=== PATIENT | male | born 1945 | race Caucasian/White ===

== ENCOUNTER 2019-12-21 13:40 | Inpatient (IN) | payer MEDICARE, MEDICAID ==
[~2019-12-21] VITALS: Ht 177.8 cm; Wt 136.0 kg
[2019-12-21] VITALS (7 sets, daily range): BP systolic 93–124; BP diastolic 62–87
[~2019-12-21 13:40] MED LIST: NO HOME MEDS
[2019-12-21 15:19] LABS: BASOPHILS % (AUTO) 0.4 % (0-1); EOSINOPHILS % (AUTO) 0.2 % (0-6); HEMATOCRIT 35.4 % (42.0-52.0); HEMOGLOBIN 12.5 g/dl (14.0-17.9); LYMPHOCYTES # (AUTO) 0.6 X10'3 (1.1-4.8); LYMPHOCYTES % (AUTO) 6.1 % (21-51); MEAN CORPUSCULAR HEMOGLOBIN 31.7 PG (27.0-31.0); MEAN CORPUSCULAR HGB CONC 35.3 g/dL (33.0-36.5); MEAN CORPUSCULAR VOLUME 89.8 FL (78-98); MEAN PLATELET VOLUME 7.7 FL (7.4-10.4); MONOCYTES # (AUTO) 0.7 X10'3 (0-0.9); MONOCYTES % (AUTO) 7.1 % (2-12); NEUTROPHILS % (AUTO) 86.2 % (42-75); PLATELET COUNT 288 X10'3 (140-440); RED BLOOD COUNT 3.94 X10'6 (4.70-6.10); RED CELL DISTRIBUTION WIDTH 13.1 % (11.5-14.5); WHITE BLOOD COUNT 10.4 X10'3 (4.5-11.0)
[2019-12-21 15:29] LABS: CLARITY,URINE SLIGHTLY CLOUDY (Clear); COLOR,URINE YELLOW (Yellow); GLUCOSE, URINE NEGATIVE (Neg); KETONES,URINE NEGATIVE (Neg); LEUKOCYTE ESTERASE ,URINE TRACE (Neg); NITRITES, URINE NEGATIVE (Neg); OCCULT BLOOD,URINE NEGATIVE (Neg); PROTEIN,URINE NEGATIVE (Neg); UROBILINOGEN,URINE 0.2 E.U/dL (0.2-1.0)
[2019-12-21 15:39] LABS: UA COLLECTION TYPE URINAL
[2019-12-21 15:40] LABS: ALANINE AMINOTRANSFERASE 21 U/L (12-78); ALBUMIN 3.5 G/DL (3.4-5.0); ALBUMIN/GLOBULIN RATIO 0.8 (1.1-1.5); ALKALINE PHOSPHATASE 64 IU/L (46-116); ANION GAP 2 (8-16); ASPARTATE AMINO TRANSFERASE 16 U/L (10-37); BILIRUBIN,TOTAL 0.7 MG/DL (0.1-1.0); BLOOD UREA NITROGEN 21 MG/DL (7-18); BUN/CREATININE RATIO 15.6 (5.4-32.0); CHLORIDE 84 MMOL/L (99-107); CREATININE 1.35 MG/DL (0.60-1.10); GLUCOSE 225 MG/DL (70-104); POTASSIUM 3.8 MMOL/L (3.5-5.1); SODIUM 121 MMOL/L (135-145); TOTAL CARBON DIOXIDE 35.5 MMOL/L (24-32); TOTAL PROTEIN 7.7 G/DL (6.4-8.2); eGFR 51 ML/MIN
[2019-12-21 15:43] LABS: MAGNESIUM 2.3 MG/DL (1.5-2.4)
[2019-12-21 15:45] LABS: BACTERIA,URINE FEW /HPF (Neg); MUCUS STRANDS FEW /LPF (Neg); SQUAMOUS EPITHELIAL CELL,UR FEW /LPF (FEW)
[2019-12-21 15:47] LABS: STARCH,URINE MODERATE /HPF (NEGATIVE)
[2019-12-21 15:48] LABS: RBC,URINE 0-2 /HPF (0-2); WBC,URINE 0-4 /HPF (0-4)
[2019-12-21] MEDS ORDERED: potassium CL 10mEq/100ml bag 100 ML IV PRN (16:35)
[2019-12-21] MEDS ORDERED: magnesium Cl slow-release 64mg tablet PO PRN (16:35)
[2019-12-21] MEDS ORDERED: magnesium 4gm in 100ml NS 100 ML IV PRN (16:35)
[2019-12-21] MEDS ORDERED: ondansetron/PF 4mg/2ml inj IV PRN (16:35)
[2019-12-21] MEDS ORDERED: magnesium 2GM in 50ml NS 50 ML IV PRN (16:35)
[2019-12-21] MEDS ORDERED: acetaminophen 325mg tablet PO PRN (16:35)
[2019-12-21] MEDS ORDERED: potassium Cl 20 mEq SR tablet PO PRN ×2 (16:35)
[2019-12-21] MEDS ORDERED: normal saline 1000ml 1,000 ML IV SCH (16:35)
--- NOTE | 2019-12-21 18:00 | NUR ---
Problems reprioritized. Patient report given, questions answered & plan of care reviewed with Lisa PERLA.
--- NOTE | 2019-12-21 18:00 | NUR ---
Report received from FRONT OF HOUSE MANAGER. Pt brought to ACCE on a bed and used slide to to get in ACCE bed. He was brought to room 313. VS where stable. Pt oriented to room, call light, Meals, Bed controls he stated understanding but he is A&O x 1-2 with mild confusion. Bed alarm on. Pt tolrated move well. Food ordered for him from dietary.
--- NOTE | 2019-12-21 18:41 | NUR ---
Patient in room MED 313. I have received report from Kayley PERLA and had the opportunity to ask questions and assume patient care.
[2019-12-21] MEDS: K and/or MAG REPLACEMENT MC SCH (20:00)
[2019-12-21] MEDS ORDERED: methylPREDNISolone sod succ/PF 40mg inj. IV ONE (22:15)
--- NOTE | 2019-12-21 22:54 | NUR ---
Stat Echo ordered per Nora. Please call Joanna KNOTT [phone]
[2019-12-21 22:56] LABS: ABG BASE EXCESS 8.2 mmol/L (-2.0-2.0); ABG HCO3 34.1 mmol/L (22.0-26.0); ABG OXYGEN SATURATION 96.7 % (94-97); ABG PCO2 (T) 52.2 mmHg (35.0-48.0); ABG PO2 (T) 88.8 mmHg (75.0-100.0); ALLEN'S TEST POSITIVE; FCOHb 0.6 % (0.0-3.9); FLOW 2 L/min; FMetHb 0.1 % (0.0-1.5); PATIENT TEMPERATURE 36.4; TOTAL HEMOGLOBIN 11.9 G/dl (14.0-18.0)
--- NOTE | 2019-12-21 22:57 | NUR ---
microbiological lab technician called, will be arriving shortly for stat echo. Michael PERLA
[2019-12-21] MEDS: ipratropium/albuterol 3ml nebule NEB SCH (23:04)
[2019-12-21 23:30] LABS: ALBUMIN 3.1 G/DL (3.4-5.0); ANION GAP 0 (8-16); BLOOD UREA NITROGEN 20 MG/DL (7-18); BUN/CREATININE RATIO 16.9 (5.4-32.0); CALCIUM 8.5 MG/DL (8.5-10.1); CHLORIDE 87 MMOL/L (99-107); CREATININE 1.18 MG/DL (0.60-1.10); GLUCOSE 168 MG/DL (70-104); POTASSIUM 3.3 MMOL/L (3.5-5.1); SODIUM 122 MMOL/L (135-145); TOTAL CARBON DIOXIDE 35.2 MMOL/L (24-32); eGFR 60 ML/MIN
[2019-12-22] VITALS (9 sets, daily range): BP systolic 109–163; BP diastolic 48–115
--- NOTE | 2019-12-22 00:01 | NUR ---
PAGED DR. RODRIGUEZ PAGER ID: [phone] MESSAGE: HEDY VILA [phone] (MIRNA) NA - 122, K 3.3 BIPAP ON, U/A RANDOM NA - 21 . ECHO RESULTS SHOULD BE AVAILABLE SHORTLY
[2019-12-22] MEDS: potassium CL 10mEq/100ml bag 100 ML IV PRN ×4 (00:25→04:16)
[2019-12-22] MEDS ORDERED: nitroGLYCERIN 0.4mg SUBLingual tab SL PRN (02:05)
[2019-12-22 02:45] LABS: BASOPHILS % (AUTO) 0.4 % (0-1); EOSINOPHILS # (AUTO) 0.2 X10'3 (0-0.9); EOSINOPHILS % (AUTO) 1.6 % (0-6); HEMATOCRIT 33.1 % (42.0-52.0); HEMOGLOBIN 11.5 g/dl (14.0-17.9); LYMPHOCYTES # (AUTO) 0.9 X10'3 (1.1-4.8); LYMPHOCYTES % (AUTO) 9.3 % (21-51); MEAN CORPUSCULAR HEMOGLOBIN 31.2 PG (27.0-31.0); MEAN CORPUSCULAR HGB CONC 34.9 g/dL (33.0-36.5); MEAN CORPUSCULAR VOLUME 89.4 FL (78-98); MEAN PLATELET VOLUME 8.1 FL (7.4-10.4); MONOCYTES % (AUTO) 10.2 % (2-12); NEUTROPHILS # (AUTO) 7.9 X10'3 (1.8-7.7); NEUTROPHILS % (AUTO) 78.5 % (42-75); PLATELET COUNT 273 X10'3 (140-440); RED CELL DISTRIBUTION WIDTH 12.9 % (11.5-14.5); WHITE BLOOD COUNT 10.1 X10'3 (4.5-11.0)
[2019-12-22] MEDS: ipratropium/albuterol 3ml nebule NEB SCH ×6 (03:36→22:59)
[2019-12-22 05:38] LABS: ALBUMIN 3.1 G/DL (3.4-5.0); ANION GAP 2 (8-16); BLOOD UREA NITROGEN 20 MG/DL (7-18); BUN/CREATININE RATIO 17.1 (5.4-32.0); CALCIUM 8.4 MG/DL (8.5-10.1); CHLORIDE 86 MMOL/L (99-107); CREATININE 1.17 MG/DL (0.60-1.10); GLUCOSE 189 MG/DL (70-104); MAGNESIUM 2.3 MG/DL (1.5-2.4); POTASSIUM 4.1 MMOL/L (3.5-5.1); SODIUM 121 MMOL/L (135-145); eGFR 61 ML/MIN
[2019-12-22] MEDS ORDERED: dextrose 50%-water 50ml dispensing syringe IV PRN ×2 (08:45)
[2019-12-22] MEDS ORDERED: dextrose ORAL solution 15 GM/59 ML bottle PO PRN ×2 (08:45)
[2019-12-22] MEDS ORDERED: MESSAGE TO PHARMACY PO ONE (08:45)
[2019-12-22] MEDS ORDERED: glucagon, human recombinant 1mg kit SUBCUT PRN (08:45)
[2019-12-22] MEDS: normal saline 1000ml 1,000 ML IV SCH ×2 (09:05→20:34)
[2019-12-22 09:29] LABS: HEMOGLOBIN A1C 8.3 % (4.5-6.2)
[2019-12-22] MEDS ORDERED: BUSP10TA11 PO (10:01)
[2019-12-22] MEDS ORDERED: AMA1T PO (11:47)
[2019-12-22] MEDS ORDERED: HCTZ25T PO (11:47)
[2019-12-22] MEDS ORDERED: LIDO700A32 TOP (11:47)
[2019-12-22] MEDS ORDERED: MELA1TAB28 PO (11:47)
[2019-12-22] MEDS ORDERED: RIVA20TA PO (11:47)
[2019-12-22] MEDS ORDERED: CARV-50 PO (11:47)
[2019-12-22] MEDS ORDERED: DULO-31 PO (11:47)
[2019-12-22] MEDS ORDERED: CALC500T11 PO (11:47)
[2019-12-22] MEDS ORDERED: FINA5TAB3 PO (11:47)
[2019-12-22] MEDS ORDERED: FURO40TA4 PO (11:47)
[2019-12-22] MEDS ORDERED: TRAZ-256 PO (11:47)
[2019-12-22] MEDS ORDERED: FLO0.4C PO (11:47)
[2019-12-22] MEDS ORDERED: UMEC1DIS INH (11:47)
[2019-12-22] MEDS ORDERED: LISI40TA4 PO (11:47)
[2019-12-22] MEDS ORDERED: CYAN250014 PO (11:47)
[2019-12-22] MEDS ORDERED: NITR0.4T48 SL (11:51)
[2019-12-22] MEDS ORDERED: DOCU-148 PO (11:51)
[2019-12-22] MEDS: nystatin 15 GM powder TP SCH ×2 (11:56→21:00)
[2019-12-22] MEDS ORDERED: NA P133E4 RC (12:00)
[2019-12-22] MEDS ORDERED: IBUP-1985 PO (12:00)
[2019-12-22] MEDS ORDERED: BISA10SU60 RC (12:00)
[2019-12-22] MEDS ORDERED: ALB0.5UD IH (12:00)
[2019-12-22] MEDS ORDERED: ACET-1008 PO (12:00)
[2019-12-22] MEDS: insulin Lispro (HumaLOG) vial - multi-dose SQ SCH (14:11)
[2019-12-22 16:39] LABS: ALBUMIN 3.1 G/DL (3.4-5.0); ANION GAP 1 (8-16); BLOOD UREA NITROGEN 22 MG/DL (7-18); BUN/CREATININE RATIO 16.9 (5.4-32.0); CALCIUM 8.7 MG/DL (8.5-10.1); CHLORIDE 89 MMOL/L (99-107); GLUCOSE 251 MG/DL (70-104); POTASSIUM 4.1 MMOL/L (3.5-5.1); SODIUM 124 MMOL/L (135-145); TOTAL CARBON DIOXIDE 34.4 MMOL/L (24-32); eGFR 54 ML/MIN
[2019-12-22] MEDS ORDERED: rivaroxaban 20mg tablet PO SCH (18:00)
--- NOTE | 2019-12-22 19:00 | NUR ---
Patient in room PCU 3014. I have received report from Miriam, and had the opportunity to ask questions and assume patient care.
--- NOTE | 2019-12-22 19:37 | NUR ---
dinner coverage for dinner not done due to late hand off report, and late tray passed 1914. Will recheck his sugar at 2100.
[2019-12-22] MEDS: K and/or MAG REPLACEMENT MC SCH (20:00)
[2019-12-22] MEDS ORDERED: insulin glargine (Lantus) pen - multi-dose SQ SCH (21:00)
[2019-12-23 02:00] VITALS: BP 129/78
[2019-12-23] MEDS: ipratropium/albuterol 3ml nebule NEB SCH ×4 (03:13→15:21)
[2019-12-23] MEDS: normal saline 1000ml 1,000 ML IV SCH (05:05)
[2019-12-23 06:03] LABS: BASOPHILS % (AUTO) 0.5 % (0-1); EOSINOPHILS % (AUTO) 0.2 % (0-6); HEMATOCRIT 35.3 % (42.0-52.0); HEMOGLOBIN 12.3 g/dl (14.0-17.9); LYMPHOCYTES % (AUTO) 9.9 % (21-51); MEAN CORPUSCULAR HEMOGLOBIN 31.7 PG (27.0-31.0); MEAN CORPUSCULAR HGB CONC 34.8 g/dL (33.0-36.5); MEAN CORPUSCULAR VOLUME 91.2 FL (78-98); MEAN PLATELET VOLUME 7.9 FL (7.4-10.4); MONOCYTES # (AUTO) 1.2 X10'3 (0-0.9); MONOCYTES % (AUTO) 12.1 % (2-12); NEUTROPHILS % (AUTO) 77.3 % (42-75); PLATELET COUNT 274 X10'3 (140-440); RED BLOOD COUNT 3.86 X10'6 (4.70-6.10); WHITE BLOOD COUNT 10.3 X10'3 (4.5-11.0)
[2019-12-23 06:18] LABS: ALBUMIN 3.3 G/DL (3.4-5.0); ANION GAP 0 (8-16); BLOOD UREA NITROGEN 21 MG/DL (7-18); BUN/CREATININE RATIO 17.8 (5.4-32.0); CHLORIDE 94 MMOL/L (99-107); CREATININE 1.18 MG/DL (0.60-1.10); GLUCOSE 151 MG/DL (70-104); MAGNESIUM 2.7 MG/DL (1.5-2.4); POTASSIUM 4.2 MMOL/L (3.5-5.1); SODIUM 130 MMOL/L (135-145); TOTAL CARBON DIOXIDE 35.7 MMOL/L (24-32); eGFR 60 ML/MIN
--- NOTE | 2019-12-23 06:37 | NUR ---
Problems reprioritized. Patient report given Avery, questions answered & plan of care reviewed with .
[2019-12-23 07:00] VITALS: BP 136/85
[2019-12-23] MEDS: K and/or MAG REPLACEMENT MC SCH (08:00)
[2019-12-23] MEDS: nystatin 15 GM powder TP SCH ×2 (09:16→13:12)
--- NOTE | 2019-12-23 09:20 | NUR ---
Unable to dart patient as he is a poor historian, he is also getting angry and yelling at nursing for asking questions.
--- NOTE | 2019-12-23 09:20 | NUR ---
PAGER ID: [phone] MESSAGE: [id number] Jeffrey Cristobal, attempted to do med rec and patient unable to give any hx. KIM Rubio RN [phone]
[2019-12-23] MEDS: insulin Lispro (HumaLOG) vial - multi-dose SQ SCH ×2 (09:41→13:12)
[2019-12-23 11:00] VITALS: BP 110/67
[2019-12-23 15:00] VITALS: BP 147/91
--- NOTE | 2019-12-23 15:43 | NUR ---
Report called to Pamela PERLA at [facility]. PIV removed. Tele removed. All questions answered. Patients clothes sent with patient. Pt. left in stable condition via [facility].
== END 2019-12-23 15:43 | DRG 640 ==
LOC: ER 13:41 → ED HOLD 16:32 → MED 3N 17:47 → PCU 3S 12-23 05:59
PROVIDERS: ADMIT Internal Medicine; ATTEND Internal Medicine
PROC: 5A09357 Assistance with Respiratory Ventilation, Less than 24 Consecutive Hours, Continuous Positive Airway Pressure (ICD-10-PCS; principal; 2019-12-21)
PROC: 5A09357 Assistance with Respiratory Ventilation, Less than 24 Consecutive Hours, Continuous Positive Airway Pressure (ICD-10-PCS; 2019-12-22)
DX: E87.1 Hypo-osmolality and hyponatremia (principal); G93.41 Metabolic encephalopathy; N17.9 Acute kidney failure, unspecified; I48.20 Chronic atrial fibrillation, unspecified; I50.30 Unspecified diastolic (congestive) heart failure; I42.9 Cardiomyopathy, unspecified; B37.2 Candidiasis of skin and nail; R09.02 Hypoxemia; Z79.899 Other long term (current) drug therapy; E11.22 Type 2 diabetes mellitus with diabetic chronic kidney disease; E86.0 Dehydration; E11.65 Type 2 diabetes mellitus with hyperglycemia; N18.30 Chronic kidney disease, stage 3 unspecified
CPT/HCPCS: 36415; 36600; 70450; 71045; 80048; 80053; 81001; 82140; 82803; 82948; 83036; 83735; 83880; 84300; 84443; 84484; 85018; 85025; 87081; 87088; 93005; 93306; 93308; 94640; 94660; 94760; 97161; 97530; 99285; G0378; J1815; J2920; J3480; J7030